=== PATIENT | female | born 1995 | race Caucasian/White ===

== ENCOUNTER 2016-10-23 14:56 | Outpatient (CLI) | payer OTHER | END 2016-10-23 23:00 | LOC: LAB SRH 14:56 | DX: Z32.01 Encounter for pregnancy test, result positive (principal) | CPT/HCPCS: 90004; 90074; 90078; 90261; 90364; 90599; 90600; 90605; 90606; 90710; 90851; 92863; 93140; 98480; 99777 ==

== ENCOUNTER → 2017-01-02 | Outpatient (CLI) | payer OTHER ==
--- NOTE | 2017-01-02 17:10 | DIAGNOSTIC IMAGING REPORT ---
PROCEDURE: US OB DETAILED ANATOMIC INDICATION: ANATOMY SURVEY TECHNIQUE: Cruz scale, color, and spectral Doppler images of the second trimester gravid uterus were obtained. COMPARISON: None. FINDINGS: There is a viable intrauterine in cephalic position. Placenta is anterior and there is no evidence of previa. Normal fluid and cervix length (3.1 cm). BPD 4.6 cm (20.0 weeks), HC 71 1 cm (19.7 weeks), AC 14.1 cm (19.3 weeks), FL 3.4 cm (19.3 weeks). anatomic survey is within normal limits including brain and ventricles, facial structures and orbits (to the extent visualized), nuchal region, spine, chest diaphragm, four-chamber heart, cardiac outflow tracts (to the extent visualized), abdomen, stomach, kidneys, three-vessel cord insertion, pelvis and urinary bladder. Upper and lower extremities are present. IMPRESSION: 1. Viable intrauterine at 19.5 weeks menstrual age (plus or minus 1.5 weeks). ROWAN is 05/25/2017. 2. Cephalic position. 3. Normal anatomic survey.
== END ==
LOC: US SRH 15:45
DX: Z34.90 Encounter for supervision of normal pregnancy, unspecified, unspecified trimester (principal); Z3A.19 19 weeks gestation of pregnancy